=== PATIENT | female | born 1945 | race Caucasian/White ===

== ENCOUNTER 2019-04-29 10:40 | Outpatient (CLI) | payer MEDICARE | END 2019-04-29 23:59 | disposition home or self-care (01) | LOC: LAB 10:40 | PROVIDERS: ATTEND Surgery | DX: R05 Cough (principal); M41.84 Other forms of scoliosis, thoracic region; M85.88 Other specified disorders of bone density and structure, other site; Z98.82 Breast implant status | CPT/HCPCS: 71046 ==